=== PATIENT | female | born 1970 | race Caucasian/White ===

== ENCOUNTER 2021-11-08 09:43 | Emergency (ER) | payer OTHER ==
[~2021-11-08] VITALS: Ht 162.6 cm; Wt 81.8 kg
[~2021-11-08 09:43] MED LIST: ABILIFY5 MG PO; ACYCLOVIR400 MG PO; CELEBREX 200MG200 MG PO; EFFEXOR 3737.5 MG/TA PO; KLONOPIN 0.5MG0.5 MG PO; PHENERGAN W/CO120 ML PO; PREDNISONE20 MG PO; ROXICODONE 55 MG/TAB PO; TUSS PO; VIIBRYD20 MG PO; WELLBUTRIN 100100 MG PO; WELLBUTRIN SR150 M1 PO; ZITHROMAX Z PA250 MG PO; ZYBAN150 M1
[2021-11-08 09:51] VITALS: TEMP 98
[2021-11-08] MEDS ORDERED: ULTRAM 50MG TAB50 MG PO (10:25)
[2021-11-08] MEDS ORDERED: LIDODERM 5% PATC1 EA TP (10:25)
[2021-11-08] MEDS ORDERED: ROBAXIN 50500 MG/TAB PO (10:26)
[2021-11-08] MEDS ORDERED: IBU800 M1 PO (10:26)
[2021-11-08] MEDS ORDERED: TRELEGY ELLIPT1 EACH IH (10:27)
[2021-11-08] MEDS ORDERED: NEURONTIN300 MG/CAP PO (11:36)
[2021-11-08 11:51] VITALS: BP 134/88; PULSE 72
== END 2021-11-08 11:52 | disposition home or self-care (01) ==
LOC: COL.ER 09:43
DX: M54.16 Radiculopathy, lumbar region (principal)

== ENCOUNTER 2022-10-16 13:09 | Emergency (ER) | payer OTHER ==
[~2022-10-16] VITALS: Ht 162.6 cm; Wt 86.0 kg
[~2022-10-16 13:09] MED LIST changes: +IBU800 M1 PO; +LIDODERM 5% PATC1 EA TP; +NEURONTIN300 MG/CAP PO; +ROBAXIN 50500 MG/TAB PO; +TRELEGY ELLIPT1 EACH IH; +ULTRAM 50MG TAB50 MG PO
[2022-10-16 14:04] LABS: BASO # 0.1 K/mm3 (0.0-0.2); BASO % 0.5 % (0.0-2.0); EOS # 0.1 K/mm3 (0.0-0.7); EOS % 1.1 % (0.0-4.0); GRAN # 5.7 K/mm3 (1.4-6.5); GRAN % 60.5 % (42.2-75.2); HEMATOCRIT 41.3 % (37.0-47.0); LYMPH # 2.8 K/mm3 (1.2-3.4); LYMPH % 29.6 % (20.0-51.0); MEAN CELL VOLUME 94 fl (80.0-100.0); MEAN CORPUSCULAR HEMOGLOBIN 32 pg (27-31); MEAN CORPUSCULAR HGB CONC 34 g/dl (33.0-37.0); MEAN PLATELET VOLUME 9.4 fl (7.4-10.4); MONO # 0.8 K/mm3 (0.1-0.6); MONO % 8.1 % (1.7-9.3); PLATELET COUNT 309 K/mm3 (130-400); RED BLOOD COUNT 4.38 M/mm3 (4.10-5.30)
[2022-10-16 14:23] LABS: BILIRUBIN,TOTAL 0.6 mg/dL (0.2-1.2); CALCIUM 9.6 mg/dL (8.4-10.2); CREATININE, serum 0.82 mg/dL (0.57-1.11); POTASSIUM 4.1 mmol/L (3.5-4.5); TOTAL PROTEIN 7.6 gm/dL (6.2-8.1)
[2022-10-16] MEDS ORDERED: NORCO 325 MG-51 TAB PO ×3 (15:37→15:46)
[2022-10-16 16:03] VITALS: BP 142/82; PULSE 73; TEMP 98.4
== END 2022-10-16 16:05 | disposition home or self-care (01) ==
LOC: COL.ER 13:09
PROVIDERS: Physician Assistant
DX: K04.7 Periapical abscess without sinus (principal)
CPT/HCPCS: J2270; J7030; Q9967

== ENCOUNTER 2024-01-01 20:19 | Emergency (ER) | payer OTHER ==
[~2024-01-01] VITALS: Ht 162.6 cm; Wt 88.0 kg
[~2024-01-01 20:19] MED LIST changes: +NORCO 325 MG-51 TAB PO
[2024-01-01] MEDS ORDERED: methylPREDNISolone Sod Succ 125 MG/2 ML VIAL IV ONE (21:30)
[2024-01-01] MEDS ORDERED: Albuterol/Ipratropium 3 MG-0.5 MG/3 ML Neb Soln IH ONE (21:30)
[2024-01-01 22:08] LABS: BASO # 0.1 K/mm3 (0.0-0.2); BASO % 0.7 % (0.0-2.0); EOS # 0.2 K/mm3 (0.0-0.7); HEMATOCRIT 37.4 % (37.0-47.0); HEMOGLOBIN 12.6 g/dl (12.5-16.0); LYMPH # 4.5 K/mm3 (1.2-3.4); LYMPH % 39.3 % (20.0-51.0); MEAN CELL VOLUME 95 fl (80.0-100.0); MEAN CORPUSCULAR HEMOGLOBIN 32 pg (27-31); MEAN CORPUSCULAR HGB CONC 34 g/dl (33.0-37.0); MEAN PLATELET VOLUME 9.6 fl (7.4-10.4); MONO # 0.7 K/mm3 (0.1-0.6); MONO % 5.7 % (1.7-9.3); PLATELET COUNT 318 K/mm3 (130-400); RED BLOOD COUNT 3.94 M/mm3 (4.10-5.30); REDCELL DISTRIBUTION WIDTH-CV 12.2 % (11.5-14.5)
[2024-01-01 22:27] LABS: ALBUMIN 3.9 g/dL (3.5-5.0); BILIRUBIN,TOTAL 0.2 mg/dL (0.2-1.2); CALCIUM 9.6 mg/dL (8.4-10.2); CREATININE, serum 0.89 mg/dL (0.57-1.11); POTASSIUM 3.8 mEq/L (3.5-4.5); TOTAL PROTEIN 7.2 g/dl (6.2-8.1)
[2024-01-01 22:33] LABS: TROPONIN-I 0.017 ng/mL (0.00-0.033)
[2024-01-01] MEDS ORDERED: NS 64 ML IV SCH (22:55)
[2024-01-01] MEDS ORDERED: Iohexol 350 - 100 ML VIAL IV ONE (22:55)
[2024-01-02 00:14] LABS: ARTERIAL BLOOD GAS PCO2 39.3 mmHg (35-45); ARTERIAL BLOOD GAS pH 7.44 (7.35-7.45)
[2024-01-02 00:15] LABS: ARTERIAL BLD GAS O2 SATURATION 92.1 % (92-100); ARTERIAL BLOOD GAS BASE EXCESS 2.4 (-2-2); ARTERIAL BLOOD GAS HCO3 26.6 meq/L (22-26)
[2024-01-02] MEDS ORDERED: Albuterol 90 MCG/PUFF 8 GM MDI IH ONE (00:15)
[2024-01-02 00:16] LABS: ARTERIAL BLD GAS TCO2 CT 27.8
[2024-01-02] MEDS ORDERED: IPRATROPIUM BROM3 M1 IH (00:17)
[2024-01-02] MEDS ORDERED: PREDNISONE10 MG PO (00:35)
[2024-01-02 01:00] VITALS: BP 123/76; PULSE 82; TEMP 98.2
== END 2024-01-02 01:00 | disposition home or self-care (01) ==
LOC: COL.ER 20:19
PROVIDERS: Nurse Practitioner Family; Personal Emergency Response Attendant
DX: J44.1 Chronic obstructive pulmonary disease with (acute) exacerbation (principal); Z87.891 Personal history of nicotine dependence
CPT/HCPCS: J2919; Q9967

== ENCOUNTER 2024-02-03 22:35 | Emergency (ER) | payer OTHER ==
[~2024-02-03] VITALS: Ht 162.6 cm; Wt 89.0 kg
[~2024-02-03 22:35] MED LIST changes: +IPRATROPIUM BROM3 M1 IH; +PREDNISONE10 MG PO
[2024-02-03 22:47] VITALS: TEMP 97
[2024-02-03] MEDS ORDERED: cefTRIAXone 1 G,Lidocaine PF 1% 2.1 ML IM ONE (23:15)
[2024-02-03] MEDS ORDERED: CEPHALEXIN500 M1 PO (23:36)
[2024-02-03 23:40] VITALS: BP 120/63; PULSE 78
== END 2024-02-03 23:40 | disposition home or self-care (01) ==
LOC: COL.ER 22:35
DX: L03.312 Cellulitis of back [any part except buttock and flank] (principal); Z88.0 Allergy status to penicillin; Z87.891 Personal history of nicotine dependence
CPT/HCPCS: J0696